=== PATIENT | male | born 1950 | race Caucasian/White ===

== ENCOUNTER 2017-11-16 07:04 | Day surgery (SDC) | payer MEDICARE ==
[~2017-11-16] VITALS: Ht 175.3 cm; Wt 86.2 kg
[~2017-11-16 07:04] MED LIST: ACETAMIN325 MG OR; ADLT ASA LOW81 MG PO; DULCOLAX10 MG RE; EQ ASPIRIN325 M1 OR; FLEET RE; FLOMAX0.4 M1 PO; LANTUS SC; LANTUS100 UNIT/M SC; LEVOTHYROXIN25 MC1 PO; LEVOTHYROXIN25 MCG PO; LISINOPRIL10 MG PO; LOVENOX 4040 MG/0.4 SC; MULTIVITAM10 OR; NEXIUM40 M1 PO; NORCO1 TA1 OR; OMEPRAZOLE20 M2 PO; POOR HISTORIAN; SIMVASTATIN40 MG PO; TRULICITY1.5 MG/0.5 SC
[2017-11-16 09:41] VITALS: BP 149/71
== END 2017-11-16 09:55 | disposition home or self-care (01) ==
LOC: ENDO 07:04
PROVIDERS: ATTEND Surgery
PROC: 0DJD8ZZ Inspection of Lower Intestinal Tract, Via Natural or Artificial Opening Endoscopic (ICD-10-PCS; principal; 2017-11-16)
DX: Z12.11 Encounter for screening for malignant neoplasm of colon (principal); I10 Essential (primary) hypertension; K21.9 Gastro-esophageal reflux disease without esophagitis; E78.5 Hyperlipidemia, unspecified; E03.9 Hypothyroidism, unspecified; E11.9 Type 2 diabetes mellitus without complications; Z86.010 Personal history of colon polyps

== ENCOUNTER 2019-03-13 06:28 | Inpatient (IN) | payer MEDICARE ==
[~2019-03-13] VITALS: Ht 175.3 cm; Wt 86.2 kg
[2019-03-13] MEDS ORDERED: CEPHALEXIN500 M1 PO (06:41)
[2019-03-13 07:16] LABS: HEMATOCRIT 41.3 % (39.0-50.0); HEMOGLOBIN 13.7 g/dl (14.0-18.0); IMMATURE GRANULOCYTES 0.3 % (0.0-5.0); MEAN CORPUSCULAR HGB 29.5 pG CALC (26.0-32.0); MEAN CORPUSCULAR HGB CONC 33.2 g/L CALC (32.0-36.0); NEUT# 5.81 thou/uL (1.82-7.42); RED BLOOD COUNT 4.64 mill/uL (4.70-6.10); RED CELL DISTRI WIDTH 13.2 % (11.5-15.5)
[2019-03-13 07:28] LABS: ALBUMIN 4.4 g/dL (3.2-5.0); AMYLASE 45 u/l (30-110); ANION GAP 15 (6-22 (CALC)); BUN 15 mg/dL (8-23); BUN/CREATININE RATIO 19 (12-20 (CALC)); CARBON DIOXIDE 28 mmol/l (22-30); CHLORIDE 101 mmol/l (95-108); CREATININE 0.8 mg/dL (0.7-1.3); GFR > 60 ML/MIN (>=60 (CALC)); GFR FOR AFR.AMER. > 60 ML/MIN (>=60 (CALC)); LIPASE 109 u/l (23-300); POTASSIUM 4.6 mmol/l (3.5-5.1); SODIUM 138 mmol/l (137-146); TOTAL PROTEIN 7.5 g/dL (6.3-8.2)
[2019-03-13 07:30] LABS: ALKALINE PHOSPHATASE 121 u/l (38-126); BILIRUBIN, TOTAL 1.9 mg/dL (0.0-1.4); SGOT/AST 560 u/l (19-48)
[2019-03-13 08:56] LABS: URINE BILIRUBIN - DIPSTICK NEGATIVE (NEGATIVE); URINE BLOOD DIPSTICK TRACE-LYSED (NEGATIVE); URINE COLOR YELLOW; URINE GLUCOSE - DIPSTICK NEGATIVE (NEGATIVE); URINE KETONE NEGATIVE (NEGATIVE); URINE LEUK ESTERASE NEGATIVE (NEGATIVE); URINE NITRITE - DIPSTICK NEGATIVE (Negative); URINE PH 7.5 (4.5-8.0); URINE PROTEIN - DIPSTICK NEGATIVE (NEG-TRACE)
[2019-03-13 12:36] VITALS: BP 130/80
[2019-03-13 14:50] VITALS: BP 123/74
[2019-03-13 19:10] VITALS: BP 159/80
[2019-03-14] VITALS: BP 158/83
[2019-03-14 03:13] VITALS: BP 141/62
[2019-03-14 05:13] LABS: HEMATOCRIT 37.4 % (39.0-50.0); HEMOGLOBIN 12.6 g/dl (14.0-18.0); MEAN CELL VOLUME 88.2 fL CALC (80.0-100.0); MEAN CORPUSCULAR HGB 29.7 pG CALC (26.0-32.0); MEAN CORPUSCULAR HGB CONC 33.7 g/L CALC (32.0-36.0); RED BLOOD COUNT 4.24 mill/uL (4.70-6.10); RED CELL DISTRI WIDTH 13.3 % (11.5-15.5)
[2019-03-14 05:28] LABS: ALBUMIN 3.6 g/dL (3.2-5.0); ALKALINE PHOSPHATASE 142 u/l (38-126); ANION GAP 15 (6-22 (CALC)); BUN 12 mg/dL (8-23); BUN/CREATININE RATIO 17 (12-20 (CALC)); CARBON DIOXIDE 24 mmol/l (22-30); CHLORIDE 104 mmol/l (95-108); CREATININE 0.7 mg/dL (0.7-1.3); GFR > 60 ML/MIN (>=60 (CALC)); GFR FOR AFR.AMER. > 60 ML/MIN (>=60 (CALC)); POTASSIUM 4.6 mmol/l (3.5-5.1); SGOT/AST 304 u/l (19-48); SODIUM 138 mmol/l (137-146); TOTAL PROTEIN 6.5 g/dL (6.3-8.2)
[2019-03-14 05:30] LABS: BILIRUBIN, TOTAL 2.9 mg/dL (0.0-1.4)
[2019-03-14 08:19] VITALS: BP 173/94
[2019-03-14 09:06] VITALS: BP 182/77
[2019-03-14 09:40] VITALS: BP 140/71
[2019-03-14 11:43] VITALS: BP 124/76
== END 2019-03-14 14:02 | DRG 446 ==
LOC: ED 06:28 → ED-I 10:41 → ED 11:00 → MS2 11:01
PROVIDERS: Emergency Medicine; ADMIT Internal Medicine; ATTEND Internal Medicine
DX: K80.60 Calculus of gallbladder and bile duct with cholecystitis, unspecified, without obstruction (principal); I10 Essential (primary) hypertension; E11.9 Type 2 diabetes mellitus without complications; E03.9 Hypothyroidism, unspecified; G89.29 Other chronic pain; M54.5 Low back pain; M19.90 Unspecified osteoarthritis, unspecified site; Z98.890 Other specified postprocedural states; Z79.4 Long term (current) use of insulin
CPT/HCPCS: Q9967

== ENCOUNTER 2022-08-26 13:27 | Emergency (ER) | payer MEDICARE ==
[~2022-08-26] VITALS: Ht 175.3 cm; Wt 83.2 kg
[~2022-08-26 13:27] MED LIST changes: +CEPHALEXIN500 M1 PO
[2022-08-26 13:48] VITALS: BP 135/76
[2022-08-26 14:00] VITALS: BP 124/65
[2022-08-26 14:16] VITALS: BP 143/71
[2022-08-26 14:48] LABS: URINE BILIRUBIN - DIPSTICK NEGATIVE (NEGATIVE); URINE BLOOD DIPSTICK TRACE-INTACT (NEGATIVE); URINE COLOR YELLOW; URINE GLUCOSE - DIPSTICK >=1000 mg/dL (NEGATIVE); URINE KETONE NEGATIVE (NEGATIVE); URINE LEUK ESTERASE NEGATIVE (NEGATIVE); URINE PH 5.5 (4.5-8.0); URINE PROTEIN - DIPSTICK NEGATIVE (NEG-TRACE); URINE UROBILINOGEN - DIPSTICK 0.2 E.U./dL (0.2)
[2022-08-26 14:49] LABS: BASO% 0.4 % (0-3); EOS% 2.4 % (0-8); HEMATOCRIT 41.9 % (39.0-50.0); HEMOGLOBIN 13.3 g/dl (14.0-18.0); IMMATURE GRANULOCYTES 0.1 % (0.0-5.0); LYMPH% 15.1 % (15-41); MEAN CELL VOLUME 86.9 fL CALC (80.0-100.0); MEAN CORPUSCULAR HGB 27.6 pG CALC (26.0-32.0); MEAN CORPUSCULAR HGB CONC 31.7 g/dL CAL (32.0-36.0); MONO% 9.9 % (2-13); NEUT# 6.63 thou/uL (1.82-7.42); NEUT% 72.1 % (42-76); RED BLOOD COUNT 4.82 mill/uL (4.70-6.10); RED CELL DISTRI WIDTH 14.1 % (11.5-15.5)
[2022-08-26 14:59] LABS: URINE NITRITE - DIPSTICK NEGATIVE (Negative)
[2022-08-26 15:31] LABS: ALBUMIN 4.2 g/dL (3.2-5.0); ALKALINE PHOSPHATASE 58 u/l (38-126); BUN 21 mg/dL (8-23); BUN/CREATININE RATIO 25 (12-20 (CALC)); CARBON DIOXIDE 24 mmol/l (22-30); CHLORIDE 101 mmol/l (95-108); CREATININE 0.9 mg/dL (0.7-1.3); GFR FOR AFR.AMER. > 60 ML/MIN (>=60 (CALC)); GFR OTHER RACES > 60 ML/MIN (>=60 (CALC)); LIPASE 59 u/l (23-300); POTASSIUM 4.5 mmol/l (3.5-5.1); SGOT/AST 27 u/l (19-48); TOTAL PROTEIN 6.9 g/dL (6.3-8.2)
[2022-08-26 15:36] LABS: ANION GAP 16 (6-22 (CALC)); BILIRUBIN, TOTAL 0.1 mg/dL (0.2-1.3); SODIUM 136 mmol/l (137-146)
[2022-08-26] MEDS ORDERED: ONDANSETRON4 MG PO (20:20)
[2022-08-26 20:41] VITALS: BP 143/71
== END 2022-08-26 20:45 | disposition home or self-care (01) ==
LOC: ED 13:27
PROVIDERS: Family Medicine
DX: R10.33 Periumbilical pain (principal); I10 Essential (primary) hypertension; K21.9 Gastro-esophageal reflux disease without esophagitis; E11.9 Type 2 diabetes mellitus without complications; E78.00 Pure hypercholesterolemia, unspecified; Z98.890 Other specified postprocedural states; Z79.4 Long term (current) use of insulin
CPT/HCPCS: Q9967

== ENCOUNTER 2023-01-27 07:41 | Day surgery (SDC) | payer MEDICARE ==
[~2023-01-27] VITALS: Ht 175.3 cm; Wt 81.6 kg
[~2023-01-27 07:41] MED LIST changes: +JARDIANCE25 MG PO; +OMEPRAZOLE DR40 MG PO; +ONDANSETRON4 MG PO; +TYLENOL500 MG PO
[2023-01-27 10:05] VITALS: BP 118/71
== END 2023-01-27 10:30 | disposition home or self-care (01) ==
LOC: ENDO 07:41 → ORM 08:45 → ENDO 10:30
PROVIDERS: ATTEND Surgery
PROC: 0DJD8ZZ Inspection of Lower Intestinal Tract, Via Natural or Artificial Opening Endoscopic (ICD-10-PCS; principal; 2023-01-27)
DX: Z12.11 Encounter for screening for malignant neoplasm of colon (principal); K57.30 Diverticulosis of large intestine without perforation or abscess without bleeding; K64.8 Other hemorrhoids; E11.9 Type 2 diabetes mellitus without complications; Z79.84 Long term (current) use of oral hypoglycemic drugs; Z79.4 Long term (current) use of insulin; Z86.010 Personal history of colon polyps